=== PATIENT | female | born 1955 ===

== ENCOUNTER → 2022-08-12 | Outpatient (CLI) | payer OTHER ==
[~2022-08-12] MED LIST: ATENOLOL25 MG PO; ATORVASTATIN CA10 MG PO; HYZAAR 50-12.1 UDTAB PO; METFORMIN HCL500 M1 PO; NAPROXEN SODIU550 M1 PO
== END | disposition home or self-care (01) ==
LOC: MRI 11:45
DX: S80.911A Unspecified superficial injury of right knee, initial encounter (principal)
CPT/HCPCS: 73721

== ENCOUNTER 2023-10-18 07:07 | Outpatient (CLI) | payer OTHER | END 2023-10-18 07:08 | disposition home or self-care (01) | LOC: NUCLEAR 07:07 | PROVIDERS: ATTEND Internal Medicine | DX: I20.9 Angina pectoris, unspecified (principal) | CPT/HCPCS: 78452; 93017; A9500 ==